=== PATIENT | female | born 1980 | race Caucasian/White ===

== ENCOUNTER 2016-09-28 22:56 | Emergency (ER) | payer MEDICAID ==
[~2016-09-28] VITALS: Ht 154.9 cm; Wt 121.5 kg
[~2016-09-28 22:56] MED LIST: ACET325T33 PO; BACTDS PO; BENZ100C70 PO; CEPH-443 PO; D-ME473S18 PO; GUAI120S26 PO; HYDR-3011 PO; HYDR-906 PO; IBUP-1542 PO; IBUP400T22 PO; IBUP800T25 PO; LORA-186 PO; NITR-58 PO
[2016-09-28 23:03] VITALS: Ht 154.9 cm; Wt 121.5 kg
[2016-09-29 02:26] LABS: URINE BLOOD (Dip) POC 2+ (NEGATIVE)
[2016-09-29] MEDS ORDERED: NITR-58 PO (02:46)
[2016-09-29] MEDS ORDERED: D-ME473S18 PO (02:46)
--- NOTE | 2016-09-29 02:51 | ERD ---
ER Documentation Chief Complaint Date/Time DATE: 09/29/16 TIME: 02:49 Chief Complaint sore throat and abdominal pain/nausea since yesterday. HPI This is a 35-year-old female presents to the ER with multiple complaints. Patient has a cough, runny nose, sore throat. Her daughter is sick with similar symptoms. Patient states that she also has urinary frequency and dysuria. She denies any vaginal discharge. Patient denies any chest pain shortness of breath. She denies any fevers or chills. ROS 12 point review of systems was done, all negative except per HPI. Medications Home Meds Active Scripts Dextromethorphan Hb-Promethazine Hcl (Promethazine DM Syrup) 473 Ml Syrup, 10 ML PO Q6H Y for COUGH, #4 OZ Prov:ALYSSA PARKS Nubia 09/29/16 Nitrofurantoin Monohyd Macrocr* (Macrobid*) 100 Mg Capsr, 100 MG PO BID for 7 Days, CAP Prov:ALYSSA PARKS Nubia 09/29/16 Nitrofurantoin Monohyd Macrocr* (Macrobid*) 100 Mg Capsr, 100 MG PO BID for 7 Days, CAP Prov:KASEYALYSSA Delacruz 09/13/16 Dextromethorphan Hb-Promethazine Hcl (Promethazine DM Syrup) 473 Ml Syrup, 10 ML PO Q6H Y for COUGH, #4 OZ Prov:KASEYALYSSA Delacruz 09/13/16 Hydrocodone/Acetaminophen ([place] 5-325 Tablet) 1 Each Tablet, 1 EACH PO Q6, #15 TAB Prov:ALYSSA PARKS 09/13/16 Ibuprofen* (Motrin*) 600 Mg Tab, 600 MG PO Q6, #14 TAB Prov:JOHN DONALDSON MD 06/01/16 Hydrocodone/Acetaminophen ([place] 5-325 Tablet) 1 Each Tablet, 1 TAB PO Q6H Y for PAIN, #10 TAB Prov:JOHN DONALDSON MD 06/01/16 Sulfamethoxazole-Trimethoprim* (Bactrim* DS) 800-160 Mg Tab, 1 TAB PO BID for 10 Days, TAB Prov:JOHN DONALDSON MD 06/01/16 Cephalexin* (Keflex*) 500 Mg Capsule, 500 MG PO QID for 7 Days, CAP Prov:ARNULFO RASHIDJamesC 01/16/16 Ibuprofen* (Motrin*) 800 Mg Tab, 800 MG PO Q6H Y for PAIN AND OR ELEVATED TEMP, #30 TAB Prov:DEYA LIZ MD 12/04/15 Sulfamethoxazole-Trimethoprim* (Bactrim* DS) 800-160 Mg Tab, 1 TAB PO BID for 7 Days, TAB Prov:DEYA LIZ MD 12/04/15 Benzonatate* (Tessalon Perle*) 100 Mg Capsule, 100 MG PO TID, #12 CAP Prov:MELISSA CHILDERSC 09/21/15 Acetaminophen* (Tylenol*) 325 Mg Tablet, 1 TAB PO Q4 Y for PAIN AND OR ELEVATED TEMP, #30 TAB Prov:MELISSA CHILDERSC 09/21/15 Ibuprofen* (Ibuprofen*) 400 Mg Tablet, 400 MG PO QID Y for pa, #30 TAB Prov:CUCA INTERIANO NP 08/13/15 Hydroxyzine Hcl* (Hydroxyzine Hcl*) 25 Mg Tablet, 25 MG PO Q8H Y for ITCHING, # 30 TAB Prov:CUCA INTERIANO NP 08/13/15 Surierspybq-O-Edxafupxrk Hb* (Guaifenesin* DM Syrup) 120 Ml Syrup, 10 ML PO Q4H Y for COUGH, #120 ML Prov:CUCA INTERIANO NP 08/13/15 Loratadine* (Claritin*) 10 Mg Tablet, 10 MG PO DAILY, #30 TAB Prov:CUCA INTERIANO NP 08/13/15 Reported Medications [none] Unknown Strength No Conflict Check 08/13/15 Allergies Allergies: Coded Allergies: No Known Drug Allergies (Unverified Allergy, Unknown, 01/16/16) PMhx/Soc Medical and Surgical Hx: pt denies Medical Hx, pt denies Surgical Hx History of Surgery: No Anesthesia Reaction: No Hx Neurological Disorder: No Hx Respiratory Disorders: No Hx Cardiac Disorders: No Hx Psychiatric Problems: No Hx Miscellaneous Medical Probl: No Hx Alcohol Use: No Hx Substance Use: No Hx Tobacco Use: No Smoking Status: Never smoker Physical Exam Vitals Vital Signs Date Time Temp Pulse Resp B/P Pulse Ox O2 Delivery O2 Flow Rate FiO2 09/28/16 23:03 96.0 94 20 137/63 97 Physical Exam GENERAL: The patient is well-developed, well-nourished, in no acute distress. NECK: Cervical spine is non tender with no step off. Supple, no nuchal rigidity HEENT: Atraumatic. Pupils equal, round and reactive to light. Extraocular muscles are grossly intact. Conjunctivae pink, no discharge. Bilateral tympanic membranes are clear with no evidence of erythema, effusion or dulling of the light reflex. Tonsilar erythema with no exudates or uvular deviation. Clear rhinorrhea. RESPIRATORY: Clear to auscultation bilaterally. There are no rales, wheezes or rhonchi. HEART: Regular rate and rhythm. No murmurs, clicks, rubs or gallops. EXTREMITIES: No clubbing or cyanosis. Full range of motion. Grossly neurovascularly intact. NEUROLOGIC: Alert and oriented. Cranial nerves II through XII are intact. SKIN: There is no rash. The skin is warm and dry. Results 24 hrs Laboratory Tests Test 09/29/16 02:26 Bedside Urine Blood 2+ Bedside Urine Glucose (UA) Negative Bedside Urine Ketones (LAB) Negative Bedside Urine Leukocyte Esterase (L 1+ Bedside Urine Nitrite (LAB) Negative Bedside Urine Protein (LAB) Negative Bedside Urine pH (LAB) 5.5 Procedures/MDM Differential diagnosis includes but is not limited to; Viral URI, allergic rhinitis, bronchitis, pertussis,pneumonia. Cough is likely viral in etiology. Clinical suspicion for pneumonia is low as patient appears well, is not hypoxic or in any respiratory distress. Additionally, patients physical examination is benign. Patient additionally has a UTI. She will be treated with Macrobid. Plan was discussed with patient they understand and agree. Patient needs to follow up with PCP in 1-2 days or return to ER sooner if symptoms worsen. Departure Diagnosis: Primary Impression: Multiple complaints Condition: Stable Patient Instructions: Understanding Urinary Tract Infections (UTIs) Additional Instructions: Llame al doctor MAANA y mikala carley RACH PARA DENTRO DE 1-2 EASTMAN.Dgale a la secretaria que nosotros le instruimos hacer esta rach.Avise o llame si barrera condicin se empeora antes de la rach. Regresa aqui si peor o no mejor. ALYSSA PARKS Sep 29, 2016 02:50
[2016-09-29 02:58] VITALS: BP 115/68; PULSE 94; RESP 22; TEMP 98.1
== END 2016-09-29 02:59 | disposition home or self-care (01) ==
LOC: FTE 22:56
DX: J02.9 Acute pharyngitis, unspecified (principal); R05 Cough; R30.0 Dysuria; R35.0 Frequency of micturition
CPT/HCPCS: 81003; Z7502; 99284

== ENCOUNTER 2016-10-15 04:58 | Emergency (ER) | payer MEDICAID ==
[~2016-10-15] VITALS: Ht 160 cm; Wt 121.0 kg
[2016-10-15 05:05] VITALS: Ht 160 cm; Wt 121.0 kg
[2016-10-15 05:27] VITALS: BP 110/57; RESP 20; TEMP 98.4
[2016-10-15] MEDS ORDERED: IBUP-1542 PO (05:33)
[2016-10-15] MEDS ORDERED: GUAI120S26 PO (05:33)
[2016-10-15] MEDS ORDERED: POLY10DR19 BOTH EYES (05:33)
[2016-10-15] MEDS ORDERED: CETI10CA PO (05:33)
--- NOTE | 2016-10-15 05:53 | ERD ---
ER Documentation Chief Complaint Date/Time DATE: 10/15/16 TIME: 05:51 Chief Complaint redness both eyes x 4 dAYS. also c/o cough, headache HPI 36-year-old female presents to emergency department for complaint of bilateral eye redness for 4 days. Patient has been been purulent discharge from both eyes. Patient also has been having dry cough, headache, does not cough up any phlegm or blood. Patient's complaining headache, throbbing, 4/10 scale. Patient is having runny nose nasal congestion clear nasal discharge. Patient's family members are sick with the same symptoms. Patient has not been taking any medications to help with symptoms. Patient does not have any fever or chills ROS All systems reviewed and are negative except as per history of present illness. Medications Home Meds Active Scripts Cetirizine Hcl* (Zyrtec*) 10 Mg Capsule, 10 MG PO DAILY, #30 TAB.CHEW Prov:CUCA INTERIANO DOPSTER 10/15/16 Polymyxin B Sulfate-TMP* (Polymyxin B-TMP Eye Drops*) 10 Ml Drops, 1 DROP BOTH EYES QID for 7 Days, EA Prov:CUCA INTERIANO DOPSTER 10/15/16 Ajielyqmvhr-S-Kvmwfsbmux Hb* (Guaifenesin* DM Syrup) 120 Ml Syrup, 10 ML PO Q4H Y for COUGH, #120 ML Prov:CUCA INTERIANO NP 10/15/16 Ibuprofen* (Motrin*) 600 Mg Tab, 600 MG PO Q6H Y for PAIN AND OR ELEVATED TEMP, #30 TAB Prov:CUCA INTERIANO DOPSTER 10/15/16 Dextromethorphan Hb-Promethazine Hcl (Promethazine DM Syrup) 473 Ml Syrup, 10 ML PO Q6H Y for COUGH, #4 OZ Prov:ALYSSA PARKS 09/29/16 Nitrofurantoin Monohyd Macrocr* (Macrobid*) 100 Mg Capsr, 100 MG PO BID for 7 Days, CAP Prov:ALYSSA PARKS 09/29/16 Nitrofurantoin Monohyd Macrocr* (Macrobid*) 100 Mg Capsr, 100 MG PO BID for 7 Days, CAP Prov:ALYSSA PARKS 09/13/16 Dextromethorphan Hb-Promethazine Hcl (Promethazine DM Syrup) 473 Ml Syrup, 10 ML PO Q6H Y for COUGH, #4 OZ Prov:ALYSSA PARKS 09/13/16 Hydrocodone/Acetaminophen ([place] 5-325 Tablet) 1 Each Tablet, 1 EACH PO Q6, #15 TAB Prov:ALYSSA PARKS 09/13/16 Ibuprofen* (Motrin*) 600 Mg Tab, 600 MG PO Q6, #14 TAB Prov:JOHN DONALDSON MD 06/01/16 Hydrocodone/Acetaminophen ([place] 5-325 Tablet) 1 Each Tablet, 1 TAB PO Q6H Y for PAIN, #10 TAB Prov:JOHN DONALDSON MD 06/01/16 Sulfamethoxazole-Trimethoprim* (Bactrim* DS) 800-160 Mg Tab, 1 TAB PO BID for 10 Days, TAB Prov:JOHN DONALDSON MD 06/01/16 Cephalexin* (Keflex*) 500 Mg Capsule, 500 MG PO QID for 7 Days, CAP Prov:ARNULFO RASHIDC 01/16/16 Ibuprofen* (Motrin*) 800 Mg Tab, 800 MG PO Q6H Y for PAIN AND OR ELEVATED TEMP, #30 TAB Prov:DEYA LIZ MD 12/04/15 Sulfamethoxazole-Trimethoprim* (Bactrim* DS) 800-160 Mg Tab, 1 TAB PO BID for 7 Days, TAB Prov:DEYA LIZ MD 12/04/15 Benzonatate* (Tessalon Perle*) 100 Mg Capsule, 100 MG PO TID, #12 CAP Prov:MELISSA CHILDERSC 09/21/15 Acetaminophen* (Tylenol*) 325 Mg Tablet, 1 TAB PO Q4 Y for PAIN AND OR ELEVATED TEMP, #30 TAB Prov:MELISSA CHILDERSC 09/21/15 Ibuprofen* (Ibuprofen*) 400 Mg Tablet, 400 MG PO QID Y for pa, #30 TAB Prov:CUCA INTERIANO NP 08/13/15 Hydroxyzine Hcl* (Hydroxyzine Hcl*) 25 Mg Tablet, 25 MG PO Q8H Y for ITCHING, # 30 TAB Prov:LAISHACUCA GREENE VivianBecky DOPSTER 08/13/15 Scencurrldj-N-Yirxrfaaei Hb* (Guaifenesin* DM Syrup) 120 Ml Syrup, 10 ML PO Q4H Y for COUGH, #120 ML Prov:LAISHACUCA GREENE TBecky BABIN 08/13/15 Loratadine* (Claritin*) 10 Mg Tablet, 10 MG PO DAILY, #30 TAB Prov:LAISHACUCA GREENE Nahum DOPSTER 08/13/15 Reported Medications [none] Unknown Strength No Conflict Check 08/13/15 Allergies Allergies: Coded Allergies: No Known Drug Allergies (Unverified Allergy, Unknown, 10/15/16) PMhx/Soc Medical and Surgical Hx: pt denies Medical Hx, pt denies Surgical Hx History of Surgery: No Anesthesia Reaction: No Hx Neurological Disorder: No Hx Respiratory Disorders: No Hx Cardiac Disorders: No Hx Psychiatric Problems: No Hx Miscellaneous Medical Probl: No (DENIES MEDICAL AND SURGICAL HISTORY.) Hx Alcohol Use: No Hx Substance Use: No Hx Tobacco Use: No Smoking Status: Never smoker FmHx Family History: No coronary disease, No diabetes, No other Physical Exam Vitals Vital Signs Date Time Temp Pulse Resp B/P Pulse Ox O2 Delivery O2 Flow Rate FiO2 10/15/16 05:27 98.4 20 110/57 98 10/15/16 05:05 98.4 90 20 110/57 98 Physical Exam GENERAL: The patient is well developed and appropriate for usual state of health, in no apparent distress. HEENT: Atraumatic. Bilateral eye noted to be erythematous with clear discharge. Bilateral eyes are PERRL EOMI intact. Ears: Normal tympanic membrane, no erythema or bulging. No ear canal swelling. No ear discharge. Nose: Erythematous nasal turbinates with clear nasal discharge. Throat: oropharynx erythematous with postnasal drip. No tonsillar swelling or tonsillar exudates. No lymphadenopathy. CHEST: Clear to auscultation bilaterally. There are no rales, wheezes or rhonchi. HEART: Regular rate and rhythm. No murmurs, clicks, rubs or gallops. No S3 or S4. ABDOMEN: Soft, nontender and nondistended. Good bowel sounds. No rebound or guarding. No gross peritonitis. No gross organomegaly or masses. No Yadav sign or McBurney point tenderness. BACK: No midline or flank tenderness. EXTREMITIES: Equal pulses bilaterally. There is no peripheral clubbing, cyanosis or edema. No focal swelling or erythema. Full range of motion. Grossly neurovascularly intact. NEURO: Alert and oriented. Cranial nerves 2-12 intact. Motor strength in all 4 extremities with 5/5 strength. Sensation grossly intact. Normal speech and gait. SKIN: There is no apparent rash or petechia. The skin is warm and dry. HEMATOLOGIC AND LYMPHATIC: There is no evidence of excessive bruising or lymphedema. No gross cervical, axillary, or inguinal lymphadenopathy. Procedures/MDM Medical Decision Making: Patient symptoms are most likely consistent with upper respiratory tract infection/ bronchitis, which viral in origin. There is low suspicion for Pneumonia at this time since patients lungs sounds are clear, patient O2 saturation is normal and patient doesnt show any respiratory distress. Radiology exam is not indicated at this time. There is low suspicion for other cardiopulmonary emergencies at this time such as CHF, Pulmonary Embolism, Pneumothorax, or any other cardiopulmonary emergencies at this time. There is low suspicion for sepsis. Patient appears well and is hemodynamically stable. Fever is controlled with medicines. Bilateral eye redness noted most likely consistent with acute bacterial conjunctivitis, no symptoms of other eye emergencies at this time. Disposition: Home. Condition: Stable Prescriptions: Polytrim eyedrops, guaifenesin DM, Zyrtec, ibuprofen Instructions: Patient is advised to take medications as prescribed. Patient is advised to rest. Patient advised to increase fluid intake, do humidifier at home and if possible, do salt water gargles. Patient is advised that if symptoms are worse, shortness of breath, uncontrolled fever, stridor, vomiting, worst signs and symptoms to return to emergency department immediately. Otherwise, patient is advised to follow up with primary doctor in 5-7 days. Departure Diagnosis: Primary Impression: Acute bacterial conjunctivitis of both eyes Additional Impression: URI (upper respiratory infection) URI type: unspecified viral URI Qualified Code: J06.9 - Viral upper respiratory tract infection Condition: Stable Patient Instructions: Conjunctivitis Caused by Infection, Uri, Viral, No Abx ( Adult) CUCA INTERIANO NP Oct 15, 2016 05:53
== END 2016-10-15 05:49 | disposition home or self-care (01) ==
LOC: FTE 04:58
DX: H10.023 Other mucopurulent conjunctivitis, bilateral (principal); J06.9 Acute upper respiratory infection, unspecified
CPT/HCPCS: 99283

== ENCOUNTER 2016-11-22 17:52 | Emergency (ER) | payer MEDICAID ==
[~2016-11-22] VITALS: Wt 95.0 kg
[~2016-11-22 17:52] MED LIST changes: +CETI10CA PO; +POLY10DR19 BOTH EYES
[2016-11-22] MEDS ORDERED: BACTDS PO (18:33)
[2016-11-22] MEDS ORDERED: IBUP-1542 PO (18:33)
[2016-11-22] MEDS ORDERED: CEPH-443 PO (18:33)
[2016-11-22] MEDS ORDERED: CLOT30CR24 TOP (18:33)
--- NOTE | 2016-11-22 18:50 | ERD ---
ER Documentation Chief Complaint Date/Time DATE: 11/22/16 TIME: 18:47 Chief Complaint LEFT AXILLA RASH FOR THE PAST FEW MONTHS. NO DRAIN HPI 36-year-old female presents here in emergency department for complaints of rash and itching in the left axillary area for the last 6 months, worsened last 2 days. Patient was seen with primary care doctor, is being referred to front desk specialist for this. Patient continues to have pain, burning pain, 4 /10 scale, is worse upon touching the area. Patient denies any swelling. Patient denies any fever or chills. Patient did not take any medications to help with symptoms. ROS All systems reviewed and are negative except as per history of present illness. Medications Home Meds Active Scripts Ibuprofen* (Motrin*) 600 Mg Tab, 600 MG PO Q6H Y for PAIN AND OR ELEVATED TEMP, #30 TAB Prov:CUCA INTERIANO NP 11/22/16 Cephalexin* (Keflex*) 500 Mg Capsule, 500 MG PO QID for 10 Days, CAP Prov:CUCA INTERIANO NP 11/22/16 Sulfamethoxazole-Trimethoprim* (Bactrim* DS) 800-160 Mg Tab, 1 TAB PO BID for 10 Days, TAB Prov:CUCA INTERIANO NP 11/22/16 Clotrimazole* (Clotrimazole* AF) 1% - 30 Gm Cream.gm., 1 APPLIC TOP BID for 7 Days, TUB Prov:CUAC INTERIANO NP 11/22/16 Cetirizine Hcl* (Zyrtec*) 10 Mg Capsule, 10 MG PO DAILY, #30 TAB.CHEW Prov:CUCA INTERIANO NP 10/15/16 Polymyxin B Sulfate-TMP* (Polymyxin B-TMP Eye Drops*) 10 Ml Drops, 1 DROP BOTH EYES QID for 7 Days, EA Prov:CUCA INTERIANO NP 10/15/16 Aheqirsxktr-Y-Kfmwuogyft Hb* (Guaifenesin* DM Syrup) 120 Ml Syrup, 10 ML PO Q4H Y for COUGH, #120 ML Prov:CUCA INTERIANO NP 10/15/16 Ibuprofen* (Motrin*) 600 Mg Tab, 600 MG PO Q6H Y for PAIN AND OR ELEVATED TEMP, #30 TAB Prov:CUCA INTERIANO NP 10/15/16 Dextromethorphan Hb-Promethazine Hcl (Promethazine DM Syrup) 473 Ml Syrup, 10 ML PO Q6H Y for COUGH, #4 OZ Prov:ALYSSA PARKS C 09/29/16 Nitrofurantoin Monohyd Macrocr* (Macrobid*) 100 Mg Capsr, 100 MG PO BID for 7 Days, CAP Prov:ALYSSA PARKS C 09/29/16 Nitrofurantoin Monohyd Macrocr* (Macrobid*) 100 Mg Capsr, 100 MG PO BID for 7 Days, CAP Prov:ALYSSA PARKS C 09/13/16 Dextromethorphan Hb-Promethazine Hcl (Promethazine DM Syrup) 473 Ml Syrup, 10 ML PO Q6H Y for COUGH, #4 OZ Prov:KASEYALYSSA GARNETT C 09/13/16 Hydrocodone/Acetaminophen ([place] 5-325 Tablet) 1 Each Tablet, 1 EACH PO Q6, #15 TAB Prov:KASEYALYSSA C 09/13/16 Ibuprofen* (Motrin*) 600 Mg Tab, 600 MG PO Q6, #14 TAB Prov:JOHN DONALDSON MD 06/01/16 Hydrocodone/Acetaminophen ([place] 5-325 Tablet) 1 Each Tablet, 1 TAB PO Q6H Y for PAIN, #10 TAB Prov:JOHN DONALDSON MD 06/01/16 Sulfamethoxazole-Trimethoprim* (Bactrim* DS) 800-160 Mg Tab, 1 TAB PO BID for 10 Days, TAB Prov:JOHN DONALDSON MD 06/01/16 Cephalexin* (Keflex*) 500 Mg Capsule, 500 MG PO QID for 7 Days, CAP Prov:ARNULFO RASHID PA-C 01/16/16 Ibuprofen* (Motrin*) 800 Mg Tab, 800 MG PO Q6H Y for PAIN AND OR ELEVATED TEMP, #30 TAB Prov:DEYA LIZ MD 12/04/15 Sulfamethoxazole-Trimethoprim* (Bactrim* DS) 800-160 Mg Tab, 1 TAB PO BID for 7 Days, TAB Prov:DEYA LIZ MD 12/04/15 Benzonatate* (Tessalon Perle*) 100 Mg Capsule, 100 MG PO TID, #12 CAP Prov:MELISSA CHILDERS PA-C 09/21/15 Acetaminophen* (Tylenol*) 325 Mg Tablet, 1 TAB PO Q4 Y for PAIN AND OR ELEVATED TEMP, #30 TAB Prov:MELISSA CHILDERS PA-C 09/21/15 Ibuprofen* (Ibuprofen*) 400 Mg Tablet, 400 MG PO QID Y for pa, #30 TAB Prov:CUCA INTERIANO NP 08/13/15 Hydroxyzine Hcl* (Hydroxyzine Hcl*) 25 Mg Tablet, 25 MG PO Q8H Y for ITCHING, # 30 TAB Prov:CUCA INTERIANO NP 08/13/15 Gmedzjoytmg-Y-Cankfhuigx Hb* (Guaifenesin* DM Syrup) 120 Ml Syrup, 10 ML PO Q4H Y for COUGH, #120 ML Prov:CUCA INTERIANO NP 08/13/15 Loratadine* (Claritin*) 10 Mg Tablet, 10 MG PO DAILY, #30 TAB Prov:CUCA INTERIANO NP 08/13/15 Reported Medications [none] Unknown Strength No Conflict Check 08/13/15 Allergies Allergies: Coded Allergies: No Known Drug Allergies (Unverified Allergy, Unknown, 10/15/16) PMhx/Soc Medical and Surgical Hx: pt denies Medical Hx, pt denies Surgical Hx History of Surgery: No Anesthesia Reaction: No Hx Neurological Disorder: No Hx Respiratory Disorders: No Hx Cardiac Disorders: No Hx Psychiatric Problems: No Hx Miscellaneous Medical Probl: No (DENIES MEDICAL AND SURGICAL HISTORY.) Hx Alcohol Use: No Hx Substance Use: No Hx Tobacco Use: No FmHx Family History: diabetes Physical Exam Vitals Vital Signs Date Time Temp Pulse Resp B/P Pulse Ox O2 Delivery O2 Flow Rate FiO2 11/22/16 17:57 98.6 100 21 134/71 99 Physical Exam GENERAL: The patient is well developed and appropriate for usual state of health, in no apparent distress. CHEST: Clear to auscultation bilaterally. There are no rales, wheezes or rhonchi. HEART: Regular rate and rhythm. No murmurs, clicks, rubs or gallops. No S3 or S4. ABDOMEN: Soft, nontender and nondistended. Good bowel sounds. No rebound or guarding. No gross peritonitis. No gross organomegaly or masses. No Yadav sign or McBurney point tenderness. BACK: No midline or flank tenderness. EXTREMITIES: Equal pulses bilaterally. There is no peripheral clubbing, cyanosis or edema. No focal swelling or erythema. Full range of motion. Grossly neurovascularly intact. NEURO: Alert and oriented. Cranial nerves 2-12 intact. Motor strength in all 4 extremities with 5/5 strength. Sensation grossly intact. Normal speech and gait. SKIN: Left axillary area noted macerated skin with mild erythema, no fluctuance noted, mild induration noted. There is no apparent ecchymosis or petechia. The skin is warm and dry. HEMATOLOGIC AND LYMPHATIC: There is no evidence of excessive bruising or lymphedema. No gross cervical, axillary, or inguinal lymphadenopathy. Procedures/MDM Medical decision making: Patient symptoms is that is consistent with candidal skin infection on the left axillary, intertrigo, but secondary infection or cellulitis. No symptoms of any abscess at this time. Incision and drainage not indicated at this time. No fluctuance noted. No symptoms of sepsis at this time. No symptoms of any necrosis. Prescription was given for Bactrim, Keflex, Clotrimazole 1% cream, ibuprofen, is advised to follow-up with primary care doctor in 2-3 days, follow through with front desk specialist referral, patient is advised to return to emergency department for any worsening symptoms. Departure Diagnosis: Primary Impression: Cellulitis Site of cellulitis: extremity Site of cellulitis of extremity: axilla Laterality: left Qualified Code: L03.112 - Cellulitis of left axilla Additional Impression: Intertriginous candidiasis Condition: Stable Patient Instructions: Cellulitis, Sara Skin Infection (Adult) CUCA INTERIANO NP Nov 22, 2016 18:50
== END 2016-11-22 18:36 | disposition home or self-care (01) ==
LOC: E/R 17:52
DX: L03.112 Cellulitis of left axilla (principal); B37.2 Candidiasis of skin and nail
CPT/HCPCS: 99284

== ENCOUNTER 2017-03-08 16:55 | Emergency (ER) | payer MEDICAID ==
[~2017-03-08] VITALS: Ht 152.4 cm; Wt 100.0 kg
[~2017-03-08 16:55] MED LIST changes: +CLOT30CR24 TOP
[2017-03-08 17:03] VITALS: Ht 152.4 cm; Wt 100.0 kg
[2017-03-08] MEDS ORDERED: ONDANSETRON 4 MG INJ IV STA (17:23)
[2017-03-08] MEDS ORDERED: morphine 4 MG/ML VIAL IV STA ×2 (17:23→18:45)
[2017-03-08 17:48] LABS: ADD SCAN DIFF NO
[2017-03-08 17:50] LABS: BASOPHILS % 0.2 % (0.0-2.0); EOSINOPHILS # 0.2 10^3/ul (0.0-0.5); EOSINOPHILS % 0.9 % (0.0-7.0); HEMOGLOBIN 14.1 g/dl (12.0-16.0); LYMPHOCYTES # 1.4 10^3/ul (0.8-2.9); LYMPHOCYTES % 8.1 % (15.0-51.0); MEAN CORPUSCULAR HEMOGLOBIN 28.3 pg (29.0-33.0); MEAN CORPUSCULAR HGB CONC 32.8 g/dl (32.0-37.0); MEAN CORPUSCULAR VOLUME 86.3 fl (82.0-101.0); MEAN PLATELET VOLUME 10.6 fl (7.4-10.4); MONOCYTE # 1.1 10^3/ul (0.3-0.9); MONOCYTES % 6.8 % (0.0-11.0); NEUTROPHIL # 13.8 10^3/ul (1.6-7.5); NEUTROPHILS % 83.3 % (39.0-77.0); PLATELET COUNT 221 10^3/UL (140-415); RED BLOOD COUNT 4.98 10^6/ul (4.20-5.40); RED CELL DISTRIBUTION WIDTH 13.3 % (11.5-14.5); WHITE BLOOD COUNT 16.6 10^3/ul (4.8-10.8)
[2017-03-08 17:51] LABS: ADD UMIC YES; URINE BILIRUBIN (Dip) NEGATIVE (NEGATIVE); URINE BLOOD (Dip) 3+ (NEGATIVE); URINE COLOR LT. YELLOW (YELLOW); URINE GLUCOSE (Dip) NEGATIVE (NEGATIVE); URINE KETONES (Dip) NEGATIVE (NEGATIVE); URINE LEUKOCYTE ESTERASE (Dip) TRACE (NEGATIVE); URINE NITRITE (Dip) NEGATIVE (NEGATIVE); URINE TOTAL PROTEIN (Dip) NEGATIVE (NEGATIVE); URINE UROBILINOGEN (Dip) 0.2 E.U./dL (0.1-1.0)
--- NOTE | 2017-03-08 17:57 | RADRPT ---
PROCEDURE: US Abdomen (right upper quadrant). CLINICAL INDICATION: Right upper quadrant abdomen pain. TECHNIQUE: Multiple real-time longitudinal and transverse images of the right upper quadrant of th e abdomen were acquired utilizing a curved array transducer. Images were reviewed on a high-resoluti on PACS workstation. COMPARISON: None FINDINGS: This is a limited study due to overlying bowel gas and patient body habitus. The liver is normal in size and normal in echogenicity. There is no focal hepatic lesion. The gallbladder is normal with no stones or wall thickening. There is no pericholecystic fluid anastacia ection. The intrahepatic bile ducts are grossly normal. The common bile duct is not visualized due to patie nt body habitus and overlying bowel gas. The visualized portions of the pancreas are unremarkable with obscuration of the tail of the pancrea s. No free fluid is present. The right kidney measures 12.1 x 4.6 x 5.7 cm. There is normal echogenicity of the right kidney. There is no perinephric fluid collection. No hydronephrosis, mass, or calculus is seen. IMPRESSION: 1. Limited study. 2. Common bile duct not visualized. 3. Otherwise grossly normal study. RPTAT: QQ .Kennedy Anand MD, MD Date Time Electronically viewed and signed by .Kennedy Anand MD, on 03/08/2017 17:57 .R/
[2017-03-08 18:06] LABS: BACTERIA,URINE FEW; SQUAMOUS EPITHELIAL CELL,UR MANY
[2017-03-08 18:29] LABS: ALBUMIN 4.6 g/dl (3.3-4.9); ALBUMIN/GLOBULIN RATIO 1.31; BILIRUBIN,INDIRECT 0.2 mg/dl (0-1.1); BILIRUBIN,TOTAL 0.2 mg/dl (0.2-1.3); CALCIUM 8.8 mg/dl (8.4-10.2); CREATININE 0.46 mg/dl (0.44-1.00); POTASSIUM 4.3 mmol/L (3.5-5.1); TOTAL PROTEIN 8.1 g/dl (6.1-8.1)
--- NOTE | 2017-03-08 18:55 | RADRPT ---
PROCEDURE: CT Abdomen and Pelvis without contrast. CLINICAL INDICATION: Abdominal pain TECHNIQUE: CT scan of the abdomen and pelvis without contrast was performed. The patient was scann ed without intravenous contrast. Coronal and sagittal reformatted images were obtained from the axi al source images. Use of iterative reconstruction technique was employed. Images were reviewed on a high-resolution PACS workstation. images. The calculated radiation dose measures 1480.88 mGy centime ters. The CTDI measures 23.70 mGy. One or more of the following dose reduction techniques were used: - Automated exposure control. - Adjustment of the mA and/or kV according to patient size . - Use of iterative reconstruction technique. Images were reviewed on a high-resolution PACS workstation COMPARISON: 09/13/2016 FINDINGS: CT abdomen: The lung bases are clear. There is a bleb noted at the right lower lobe. The heart size is normal, without pericardial thickening or effusion. The liver is mildly increased size and decreased densi ty without focal mass or intrahepatic biliary dilatation. There are areas of increased attenuation w ithin the liver parenchyma. The spleen is normal in size and homogeneous in density. The stomach i s partially collapsed, but is grossly unremarkable. The pancreas as visualized is normal. The gall bladder and biliary tree are unremarkable and there is no evidence for biliary dilatation. The adr enal glands are symmetric and normal. The kidneys are symmetrically unremarkable as well. No renal calculus or obstructive uropathy or mass lesion is seen. The aorta is of normal caliber. There is no retroperitoneal lymphadenopathy. The zeeshan hepatis re gion is clear. The bowel and mesentery, as visualized, are equally unremarkable. There is a mesente chasidy fat containing periumbilical hernia with the hernia neck measuring approximately 2.[address] pelvis: The small bowel loops situated within the pelvis are unremarkable. The pelvic organs are normal. T he pelvic sidewalls and inguinal regions are clear. The sigmoid colon and rectum are remarkable for sigmoid diverticulosis. Normal unenhanced appearance of the appendix. No mass, lymphadenopathy, or free fluid is seen. No acute inflammation is seen. The surrounding osseous structures are intact. No osteolytic or osteoblastic lesion is detected. IMPRESSION: 1. No acute inflammatory process identified in the abdomen or pelvis on this noncontrast examination . 2. Enlarged fatty liver, with areas of fatty sparing. A non emergent contrast-enhanced study or ul trasound may be obtained for confirmation if there are abnormal liver function values. 3. Normal unenhanced appearance of the appendix. 4. Similar appearing freeman umbilical hernia containing mesenteric fat. RPTAT: VV .Tiburcio Vizcarra MD, Date Time Electronically viewed and signed by .Tiburcio Vizcarra MD, on 03/08/2017 18:55 .d/
[2017-03-08] MEDS ORDERED: DICLOFENAC SODIUM 37.5 MG/ML VIAL IV STA (18:58)
[2017-03-08] MEDS ORDERED: HYDR-906 PO (19:12)
[2017-03-08] MEDS ORDERED: PANT40TA3 PO (19:12)
[2017-03-08] MEDS ORDERED: DOCU-144 PO (19:13)
--- NOTE | 2017-03-08 19:19 | ERD ---
ER Documentation Chief Complaint Date/Time DATE: 03/08/17 TIME: 19:16 Chief Complaint AP X 3 DAYS HPI 36-year-old female complains of central or epigastric abdominal pain for last 2- 3 days. She describes as burning. She denies fevers, vomiting although she does have nausea. She denies lower abdominal pain. She denies urinary complaints ROS All systems reviewed and are negative except as per history of present illness. Medications Home Meds Active Scripts Docusate Sodium* (Colace*) 100 Mg Capsule, 100 MG PO BID, #30 CAP Prov:JOHN DONALDSON MD 03/08/17 Hydrocodone/Acetaminophen ([place] 5-325 Tablet) 1 Each Tablet, 1 EACH PO QID, # 12 TAB Prov:JOHN DONALDSON MD 03/08/17 Pantoprazole* (Protonix*) 40 Mg Tablet.dr, 40 MG PO DAILY, #20 TAB Prov:JOHN DONALDSON MD 03/08/17 Ibuprofen* (Motrin*) 600 Mg Tab, 600 MG PO Q6H Y for PAIN AND OR ELEVATED TEMP, #30 TAB Prov:CUCA INTERIANO NP 11/22/16 Cephalexin* (Keflex*) 500 Mg Capsule, 500 MG PO QID for 10 Days, CAP Prov:CUCA INTERIANO NP 11/22/16 Sulfamethoxazole-Trimethoprim* (Bactrim* DS) 800-160 Mg Tab, 1 TAB PO BID for 10 Days, TAB Prov:CUCA INTERIANO NP 11/22/16 Clotrimazole* (Clotrimazole* AF) 1% - 30 Gm Cream.gm., 1 APPLIC TOP BID for 7 Days, TUB Prov:CUCA INTERIANO NP 11/22/16 Cetirizine Hcl* (Zyrtec*) 10 Mg Capsule, 10 MG PO DAILY, #30 TAB.CHEW Prov:CUCA INTERIANO NP 10/15/16 Polymyxin B Sulfate-TMP* (Polymyxin B-TMP Eye Drops*) 10 Ml Drops, 1 DROP BOTH EYES QID for 7 Days, EA Prov:CUCA INTERIANO NP 10/15/16 Upjktqqxofs-T-Vezsqojuto Hb* (Guaifenesin* DM Syrup) 120 Ml Syrup, 10 ML PO Q4H Y for COUGH, #120 ML Prov:CUCA INTERIANO PREVENTIVE MEDICINE SPECIALIST 10/15/16 Ibuprofen* (Motrin*) 600 Mg Tab, 600 MG PO Q6H Y for PAIN AND OR ELEVATED TEMP, #30 TAB Prov:CUCA INTERIANO PREVENTIVE MEDICINE SPECIALIST 10/15/16 Dextromethorphan Hb-Promethazine Hcl (Promethazine DM Syrup) 473 Ml Syrup, 10 ML PO Q6H Y for COUGH, #4 OZ Prov:ALYSSA PARKS 09/29/16 Nitrofurantoin Monohyd Macrocr* (Macrobid*) 100 Mg Capsr, 100 MG PO BID for 7 Days, CAP Prov:ALYSSA PARKS 09/29/16 Nitrofurantoin Monohyd Macrocr* (Macrobid*) 100 Mg Capsr, 100 MG PO BID for 7 Days, CAP Prov:ALYSSA PARKS 09/13/16 Dextromethorphan Hb-Promethazine Hcl (Promethazine DM Syrup) 473 Ml Syrup, 10 ML PO Q6H Y for COUGH, #4 OZ Prov:ALYSSA PARKS 09/13/16 Hydrocodone/Acetaminophen ([place] 5-325 Tablet) 1 Each Tablet, 1 EACH PO Q6, #15 TAB Prov:ALYSSA PARKS 09/13/16 Ibuprofen* (Motrin*) 600 Mg Tab, 600 MG PO Q6, #14 TAB Prov:JOHN DONALDSON MD 06/01/16 Hydrocodone/Acetaminophen ([place] 5-325 Tablet) 1 Each Tablet, 1 TAB PO Q6H Y for PAIN, #10 TAB Prov:JOHN DONALDSON MD 06/01/16 Sulfamethoxazole-Trimethoprim* (Bactrim* DS) 800-160 Mg Tab, 1 TAB PO BID for 10 Days, TAB Prov:JOHN DONALDSON MD 06/01/16 Cephalexin* (Keflex*) 500 Mg Capsule, 500 MG PO QID for 7 Days, CAP Prov:ARNULFO RASHID PA-C 01/16/16 Ibuprofen* (Motrin*) 800 Mg Tab, 800 MG PO Q6H Y for PAIN AND OR ELEVATED TEMP, #30 TAB Prov:DEYA LIZ MD 12/04/15 Sulfamethoxazole-Trimethoprim* (Bactrim* DS) 800-160 Mg Tab, 1 TAB PO BID for 7 Days, TAB Prov:DEYA LIZ MD 12/04/15 Benzonatate* (Tessalon Perle*) 100 Mg Capsule, 100 MG PO TID, #12 CAP Prov:MELISSA CHILDERS PA-C 09/21/15 Acetaminophen* (Tylenol*) 325 Mg Tablet, 1 TAB PO Q4 Y for PAIN AND OR ELEVATED TEMP, #30 TAB Prov:MELISSA CHILDERS PA-C 09/21/15 Ibuprofen* (Ibuprofen*) 400 Mg Tablet, 400 MG PO QID Y for pa, #30 TAB Prov:CUCA INTERIANO NP 08/13/15 Hydroxyzine Hcl* (Hydroxyzine Hcl*) 25 Mg Tablet, 25 MG PO Q8H Y for ITCHING, # 30 TAB Prov:CUCA INTERIANO NP 08/13/15 Epmruhoevtj-S-Otvvnoagyj Hb* (Guaifenesin* DM Syrup) 120 Ml Syrup, 10 ML PO Q4H Y for COUGH, #120 ML Prov:CUCA INTERIANO NP 08/13/15 Loratadine* (Claritin*) 10 Mg Tablet, 10 MG PO DAILY, #30 TAB Prov:CUCA INTERIANO NP 08/13/15 Reported Medications [none] Unknown Strength No Conflict Check 08/13/15 Allergies Allergies: Coded Allergies: No Known Drug Allergies (Unverified Allergy, Unknown, 10/15/16) PMhx/Soc History of Surgery: No Anesthesia Reaction: No Hx Neurological Disorder: No Hx Respiratory Disorders: No Hx Cardiac Disorders: No Hx Psychiatric Problems: No Hx Miscellaneous Medical Probl: No (DENIES MEDICAL AND SURGICAL HISTORY.) Hx Alcohol Use: No Hx Substance Use: No Hx Tobacco Use: No Smoking Status: Never smoker Physical Exam Vitals Vital Signs Date Time Temp Pulse Resp B/P Pulse Ox O2 Delivery O2 Flow Rate FiO2 03/08/17 17:03 98.1 95 20 130/87 99 Physical Exam Const: [] Alert, morbidly obese, no apparent distress. Head: Atraumatic Eyes: Normal Conjunctiva ENT: Normal External Ears, Nose and Mouth. Neck: Full range of motion..~ No meningismus. Resp: Clear to auscultation bilaterally Cardio: Regular rate and rhythm, no murmurs Abd: Soft, tender in the superior abdomen mostly in the epigastric area., non distended. Normal bowel sounds Skin: No petechiae or rashes Back: No midline or flank tenderness Ext: No cyanosis, or edema Neur: Awake and alert Psych: Normal Mood and Affect Result Diagram: 03/08/17 [id number] Results 24 hrs Laboratory Tests Test 03/08/17 17:34 03/08/17 17:39 Urine Color LT. YELLOW Urine Clarity SLIGHTLY CLOUDY Urine pH 5.5 Urine Specific [place] 1.015 Urine Ketones NEGATIVE Urine Nitrite NEGATIVE Urine Bilirubin NEGATIVE Urine Urobilinogen 0.2 E.U./dL Urine Leukocyte Esterase TRACE Urine Microscopic RBC 5-10/HPF Urine Microscopic WBC 5-10/HPF Urine Squamous Epithelial Cells MANY Urine Bacteria FEW Urine Hemoglobin 3+ Urine Glucose NEGATIVE% Urine Total Protein NEGATIVE White Blood Count 16.610^3/ul Red Blood Count 4.9810^6/ul Hemoglobin 14.1g/dl Hematocrit 43.0% Mean Corpuscular Volume 86.3fl Mean Corpuscular Hemoglobin 28.3pg Mean Corpuscular Hemoglobin Concent 32.8g/dl Red Cell Distribution Width 13.3% Platelet Count 61544^3/UL Mean Platelet Volume 10.6fl Neutrophils % 83.3% Lymphocytes % 8.1% Monocytes % 6.8% Eosinophils % 0.9% Basophils % 0.2% Nucleated Red Blood Cells % 0.0/100WBC Neutrophils # 13.810^3/ul Lymphocytes # 1.410^3/ul Monocytes # 1.110^3/ul Eosinophils # 0.210^3/ul Basophils # 0.010^3/ul Nucleated Red Blood Cells # 0.010^3/ul Sodium Level 142mmol/L Potassium Level 4.3mmol/L Chloride Level 108mmol/L Carbon Dioxide Level 25mmol/L Anion Gap 13 Blood Urea Nitrogen 16mg/dl Creatinine 0.46mg/dl Glucose Level 215mg/dl Calcium Level 8.8mg/dl Total Bilirubin 0.2mg/dl Direct Bilirubin 0.00mg/dl Indirect Bilirubin 0.2mg/dl Aspartate Amino Transf (AST/SGOT) 37IU/L Alanine Aminotransferase (ALT/SGPT) 40IU/L Alkaline Phosphatase 100IU/L Total Protein 8.1g/dl Albumin 4.6g/dl Globulin 3.50g/dl Albumin/Globulin Ratio 1.31 Lipase 74U/L Current Medications Medications (Trade) Dose Ordered Sig/Reinier Route PRN Reason Start Time Stop Time Status Last Admin Dose Admin Morphine Sulfate (morphine) 4 mg ONCE STAT IV 03/08/17 17:23 03/08/17 17:25 DC 03/08/17 17:43 Ondansetron HCl (Zofran Inj) 4 mg ONCE STAT IV 03/08/17 17:23 03/08/17 17:25 DC 03/08/17 17:43 Morphine Sulfate (morphine) 4 mg ONCE STAT IV 03/08/17 18:45 03/08/17 18:46 DC 03/08/17 18:51 Diclofenac Sodium (Dyloject) 37.5 mg ONCE STAT IV 03/08/17 18:58 03/08/17 18:59 DC 03/08/17 19:12 Pantoprazole (Protonix Iv) 40 mg ONCE ONCE IV 03/08/17 19:30 03/08/17 19:31 03/08/17 19:12 Procedures/MDM Given the uncertain cause of pain and IV was obtained. White blood cell count of 16. CMP and lipase show no acute abnormalities. Urine shows no signs of infection, glucose and hemoglobin. Right upper quadrant ultrasound is limited study but shows no acute abnormalities grossly. Patient was given morphine 4 mg IV 2 during the ED course as well as DYLOJECT 37.5 and Protonix [address] abdomen pelvis noncontrast shows non-strangulated ventral hernia seen on previous studies. There is fatty liver without acute findings. Patient had a benign abdomen on serial exam. Patient presents with burning central or upper abdominal pain of uncertain etiology, possibly gastritis. There is no current signs or symptoms of acute abdomen, obstruction, sepsis, appendicitis, aortic disease, cholecystitis, UTI or pyelonephritis. She will discharged home with Protonix [place] and observation at home. The patient was stable with no new complaints during the ER course. Clinically, there is no current evidence to suggest meningitis, sepsis, acute abdomen, pneumonia, acute coronary syndrome, pulmonary embolism, or any other emergent condition appearing to require further evaluation or hospitalization. The patient should certainly return for any new or worsening symptoms per the aftercare instructions. They should otherwise follow-up with her primary care doctor for reevaluation this week. Departure Diagnosis: Primary Impression: Abdominal pain Abdominal location: epigastric Qualified Code: R10.13 - Epigastric pain Condition: Stable Patient Instructions: Abdominal Pain, Gastritis (Adult) Additional Instructions: EXAMINES NO TIENE ENFERMA PELIGROSA. Cheque otro vez con barrera doctor primario en el proximo joya or regresa para mas o nueva simptomas- FARIDA FOSTER SANGRE. JOHN DONALDSON MD Mar 08, 2017 19:19
[2017-03-08] MEDS ORDERED: PANTOPRAZOLE 40 MG INJ IV ONE (19:30)
== END 2017-03-08 19:32 | disposition home or self-care (01) ==
LOC: FTE 16:55
DX: R10.13 Epigastric pain (principal); R11.0 Nausea
CPT/HCPCS: 36415; 74176; 76705; 80053; 81001; 83690; 85025; 96374; 96375; 96376; C9113; J2270; J2405; Z7502; Z7610

== ENCOUNTER 2017-10-08 17:59 | Emergency (ER) | END 2017-10-08 19:46 | disposition home or self-care (01) ==

== ENCOUNTER 2017-11-30 20:29 | Emergency (ER) | END 2017-12-01 02:00 | disposition home or self-care (01) ==

== ENCOUNTER 2017-12-05 17:23 | Emergency (ER) | END 2017-12-05 20:54 | disposition home or self-care (01) ==

== ENCOUNTER 2018-09-26 09:49 | Emergency (ER) | payer MEDICAID ==
[~2018-09-26] VITALS: Wt 122.9 kg
[~2018-09-26 09:49] MED LIST changes: +ACET500C5 PO; +ALBU8.5H8 INH; +AZIT250T PO; +BENZ-6 PO; -BENZ100C70 PO; +D-ME473S2 PO; +DOCU-144 PO; +GUAI473L22 PO; -HYDR-3011 PO; +HYDR-4011 PO; +HYDR-843 PO; -HYDR-906 PO; +IBUP-1541 PO; -IBUP400T22 PO; -IBUP800T25 PO; +IBUP800T48 PO; +LEVO750T25 PO; +PANT40TA3 PO
[2018-09-26 09:51] VITALS: BP 140/84; PULSE 94; RESP 20
[2018-09-26] MEDS ORDERED: PHEN-538 PO (10:48)
[2018-09-26] MEDS ORDERED: CEPH-443 PO (10:48)
--- NOTE | 2018-09-26 10:50 | ERD ---
ER Documentation Chief Complaint Chief Complaint dysuria HPI 37-year-old female presents with dysuria for the last week. She was last treated for UTI 3 months ago. She denies any fevers, vomiting, abdominal pain. Denies . ROS All systems reviewed and are negative except as per history of present illness. Medications Home Meds Active Scripts Phenazopyridine Hcl* (Pyridium*) 200 Mg Tab, 200 MG PO TID PRN for URINARY PAIN, #6 TAB Prov:JOHN DONALDSON MD 09/26/18 Cephalexin* (Keflex*) 500 Mg Capsule, 500 MG PO QID for 5 Days, CAP Prov:JOHN DONALDSON MD 09/26/18 Ibuprofen* (Motrin*) 600 Mg Tab, 600 MG PO Q8H PRN for PAIN, #20 TAB Prov:RICHIE DELGADILLO MD 12/05/17 Dextromethorphan Hb-Promethazine Hcl* (Promethazine DM* Syrup) 473 Ml Syrup, 10 ML PO Q6 PRN for COUGH, #120 ML Prov:RICHIE DELGADILLO MD 12/05/17 Levofloxacin* (Levaquin*) 750 Mg Tablet, 750 MG PO DAILY for 5 Days, TAB Prov:RICHIE DELGADILLO MD 12/05/17 Acetaminophen* (Tylophen*) 500 Mg Capsule, 1 CAP PO Q6H PRN for PAIN AND OR ELEVATED TEMP, #20 CAP Prov:CUCA INTERIANO NP 12/01/17 Ibuprofen* (Motrin*) 600 Mg Tab, 600 MG PO Q6H PRN for PAIN AND OR ELEVATED TEMP, #30 TAB Prov:CUCA INTERIANO NP 12/01/17 Cetirizine Hcl* (Zyrtec*) 10 Mg Capsule, 10 MG PO DAILY, #30 TAB.CHEW Prov:CUCA INTERIANO NP 12/01/17 Albuterol Sulfate* (Proair HFA*) 8.5 Gm Hfa.aer.ad, 2 PUFF INH Q4H PRN for WHEEZING AND SOB, #1 INHALER Prov:CUCA INTERIANO NP 12/01/17 Guaifenesin-Codeine Phosphate* (Guaifenesin* AC Cough Syrup) 473 Ml Liquid, 10 ML PO Q4H PRN for COUGH, #120 ML Prov:CUCA INTERIANO NP 12/01/17 Azithromycin* (Zithromax*) 250 Mg Tablet, 250 MG PO .ZPAMARLYN DIRECTED, #6 TAB TAKE 500 MG (2 TABS) THE FIRST DAY THEN 250 MG (1 TAB) DAYS 2-5 Prov:CUCA INTERIANO NP 12/01/17 Azithromycin* (Zithromax*) 250 Mg Tablet, 250 MG PO .KvngPAMARLYN DIRECTED, #6 TAB TAKE 500 MG (2 TABS) THE FIRST DAY THEN 250 MG (1 TAB) DAYS 2-5 Prov:RICHIE GONSALEZ PA-C 10/08/17 Benzonatate* (Tessalon Perle*) 100 Mg Capsule, 100 MG PO TID for 5 Days, CAP Prov:RICHIE GONSALEZ PA-C 10/08/17 Docusate Sodium* (Colace*) 100 Mg Capsule, 100 MG PO BID, #30 CAP Prov:JOHN DONALDSON MD 03/08/17 Hydrocodone/Acetaminophen ([place] 5-325 Tablet) 1 Each Tablet, 1 EACH PO QID, #12 TAB Prov:JOHN DONALDSON MD 03/08/17 Pantoprazole* (Protonix*) 40 Mg Tablet.dr, 40 MG PO DAILY, #20 TAB Prov:JOHN DONALDSON MD 03/08/17 Ibuprofen* (Motrin*) 600 Mg Tab, 600 MG PO Q6H PRN for PAIN AND OR ELEVATED TEMP, #30 TAB Prov:CUCA INTERIANO NP 11/22/16 Cephalexin* (Keflex*) 500 Mg Capsule, 500 MG PO QID for 10 Days, CAP Prov:CUCA INTERIANO NP 11/22/16 Sulfamethoxazole-Trimethoprim* (Bactrim* DS) 800-160 Mg Tab, 1 TAB PO BID for 10 Days, TAB Prov:CUCA INTERIANO NP 11/22/16 Clotrimazole* (Clotrimazole* AF) 1% - 30 Gm Cream.gm., 1 APPLIC TOP BID for 7 Days, TUB Prov:CUCA INTERIANO NP 11/22/16 Cetirizine Hcl* (Zyrtec*) 10 Mg Capsule, 10 MG PO DAILY, #30 TAB.CHEW Prov:CUCA INTERIANO [employer] 10/15/16 Polymyxin B Sulfate-TMP* (Polymyxin B-TMP Eye Drops*) 10 Ml Drops, 1 DROP BOTH EYES QID for 7 Days, EA Prov:CUCA INTERIANO [employer] 10/15/16 Slynvyuebbd-I-Qtsvazidob Hb* (Guaifenesin* DM Syrup) 120 Ml Syrup, 10 ML PO Q4H PRN for COUGH, #120 ML Prov:CUCA INTERIANO [employer] 10/15/16 Ibuprofen* (Motrin*) 600 Mg Tab, 600 MG PO Q6H PRN for PAIN AND OR ELEVATED TEMP, #30 TAB Prov:CUCA INTERIANO [employer] 10/15/16 Dextromethorphan Hb-Promethazine Hcl (Promethazine DM Syrup) 473 Ml Syrup, 10 ML PO Q6H PRN for COUGH, #4 OZ Prov:KASEYALYSSA Delacruz 09/29/16 Nitrofurantoin Monohyd Macrocr* (Macrobid*) 100 Mg Capsr, 100 MG PO BID for 7 Days, CAP Prov:ALYSSA PARKS 09/29/16 Nitrofurantoin Monohyd Macrocr* (Macrobid*) 100 Mg Capsr, 100 MG PO BID for 7 Days, CAP Prov:ALYSSA PARKS 09/13/16 Dextromethorphan Hb-Promethazine Hcl (Promethazine DM Syrup) 473 Ml Syrup, 10 ML PO Q6H PRN for COUGH, #4 OZ Prov:ALYSSA PARKS 09/13/16 Hydrocodone/Acetaminophen ([place] 5-325 Tablet) 1 Each Tablet, 1 EACH PO Q6, #15 TAB Prov:ALYSSA PARKS C 09/13/16 Ibuprofen* (Motrin*) 600 Mg Tab, 600 MG PO Q6, #14 TAB Prov:JOHN DONALDSON MD 06/01/16 Hydrocodone/Acetaminophen ([place] 5-325 Tablet) 1 Each Tablet, 1 TAB PO Q6H PRN for PAIN, #10 TAB Prov:JOHN DONALDSON MD 06/01/16 Sulfamethoxazole-Trimethoprim* (Bactrim* DS) 800-160 Mg Tab, 1 TAB PO BID for 10 Days, TAB Prov:JOHN DONALDSON MD 06/01/16 Cephalexin* (Keflex*) 500 Mg Capsule, 500 MG PO QID for 7 Days, CAP Prov:ARNULFO RASHID PA-C 01/16/16 Ibuprofen* (Motrin*) 800 Mg Tab, 800 MG PO Q6H PRN for PAIN AND OR ELEVATED TEMP, #30 TAB Prov:DEYA LIZ MD 12/04/15 Sulfamethoxazole-Trimethoprim* (Bactrim* DS) 800-160 Mg Tab, 1 TAB PO BID for 7 Days, TAB Prov:DEYA LIZ MD 12/04/15 Benzonatate* (Tessalon Perle*) 100 Mg Capsule, 100 MG PO TID, #12 CAP Prov:MELISSA CHILDERS-C 09/21/15 Acetaminophen* (Tylenol*) 325 Mg Tablet, 1 TAB PO Q4 PRN for PAIN AND OR ELEVATED TEMP, #30 TAB Prov:MELISSA CHILDERS-C 09/21/15 Ibuprofen* (Ibuprofen*) 400 Mg Tablet, 400 MG PO QID PRN for pa, #30 TAB Prov:CUCA INTERIANO NP 08/13/15 Hydroxyzine Hcl* (Hydroxyzine Hcl*) 25 Mg Tablet, 25 MG PO Q8H PRN for ITCHING, #30 TAB Prov:CUCA INTERIANO NP 08/13/15 Ljvxlinexqp-W-Fbytvszrkj Hb* (Guaifenesin* DM Syrup) 120 Ml Syrup, 10 ML PO Q4H PRN for COUGH, #120 ML Prov:CUCA INTERIANO NP 08/13/15 Loratadine* (Claritin*) 10 Mg Tablet, 10 MG PO DAILY, #30 TAB Prov:CUCA INTERIANO NP 08/13/15 Reported Medications [none] Unknown Strength No Conflict Check 08/13/15 Allergies Allergies: Coded Allergies: No Known Drug Allergies (Unverified Allergy, Unknown, 10/15/16) PMhx/Soc History of Surgery: No Anesthesia Reaction: No Hx Neurological Disorder: No Hx Respiratory Disorders: No Hx Cardiac Disorders: No Hx Psychiatric Problems: No Hx Miscellaneous Medical Probl: No Hx Alcohol Use: No Hx Substance Use: No Hx Tobacco Use: No Smoking Status: Never smoker FmHx Family History: No diabetes, No coronary disease, No other Physical Exam Vitals Vital Signs Date Temp Pulse Resp B/P (MAP) Pulse Ox O2 O2 Flow FiO2 Time Delivery Rate 09/26/18 97.7 94 20 140/84 100 09:51 (102) Physical Exam Const: No acute distress. Morbidly obese. Head: Atraumatic Eyes: Normal Conjunctiva ENT: Normal External Ears, Nose and Mouth. Neck: Full range of motion. No meningismus. Resp: Clear to auscultation bilaterally Cardio: Regular rate and rhythm, no murmurs Abd: Soft, non tender, non distended. Normal bowel sounds Skin: No petechiae or rashes Back: No midline or flank tenderness Ext: No cyanosis, or edema Neur: Awake and alert Psych: Normal Mood and Affect Results 24 hrs Laboratory Tests Test 09/26/18 10:18 09/26/18 10:20 Urine Color YELLOW Urine Clarity SLIGHTLY CLOUDY Urine pH 5.0 Urine Specific [place] 1.011 Urine Ketones NEGATIVE mg/dL Urine Nitrite NEGATIVE mg/dL Urine Bilirubin NEGATIVE mg/dL Urine Urobilinogen NEGATIVE mg/dL Urine Leukocyte Esterase 1+ Barry/ul Urine Microscopic RBC 3 /HPF Urine Microscopic WBC 6 /HPF Urine Squamous Epithelial Cells FEW /HPF Urine Mucus FEW /HPF Urine Hemoglobin 2+ mg/dL Urine Glucose NEGATIVE mg/dL Urine Total Protein NEGATIVE mg/dl POC Beta HCG, Qualitative NEGATIVE Current Medications Medications Dose Sig/Reinier Start Time Status Last (Trade) Ordered Route PRN Stop Time Admin Dose Reason Admin Cephalexin 500 mg ONCE ONCE 09/26/18 DC 09/26/18 (Keflex) PO 11:00 09/26/18 10:52 11:01 200 mg ONCE ONCE 09/26/18 DC 09/26/18 Phenazopyridi PO 11:00 09/26/18 10:52 ne HCl 11:01 (Pyridium) Procedures/MDM HCG negative. Urine shows white blood cells and leukocyte esterase. Patient was given Keflex and Pyridium by mouth. Patient presents with signs of uncomplicated cystitis without signs of abdominal pain, SIRS criteria, additional complications. She will treated with Keflex, Pyridium, instructions for fluids, return precautions for fevers, vomiting, abdominal pain, new worsening symptoms. The patient was stable with no new complaints during the ER course. Clinically, there is no current evidence to suggest meningitis, sepsis, acute abdomen, pneumonia, stroke, acute coronary syndrome, pulmonary embolism, aortic dissection or any other emergent condition appearing to require further evaluation or hospitalization. Patient counseled regarding my diagnostic impression and care plan. Prior to discharge all questions answered. Pt agrees with treatment plan and understands strict return precautions. Pt is instructed to follow up with primary care provider within 24-48 hours. Precautionary instructions provided including instructions to return to the ER if not improving or for any worsening or changing symptoms or concerns. Departure Diagnosis: Primary Impression: UTI (urinary tract infection) Urinary tract infection type: acute cystitis Hematuria presence: without hematuria Qualified Codes: N30.00 - Acute cystitis without hematuria Condition: Stable Patient Instructions: Understanding Urinary Tract Infections (UTIs) Additional Instructions: Cheque otro vez con barrera doctor primario en el proximo joya or regresa para mas o nueva simptomas- fiebre , vomito. JOHN DONALDSON MD Sep 26, 2018 10:50
[2018-09-26] MEDS ORDERED: PHENAZOPYRIDINE 100 MG TAB PO ONE (11:00)
[2018-09-26] MEDS ORDERED: CEPHALEXIN 500 MG CAP PO ONE (11:00)
== END 2018-09-26 11:09 | disposition home or self-care (01) ==
LOC: FTE 09:49
DX: N30.00 Acute cystitis without hematuria (principal)
CPT/HCPCS: 81001; 81025; Z7502; Z7610; 99283

== ENCOUNTER 2018-10-01 06:13 | Emergency (ER) | payer MEDICAID ==
[~2018-10-01] VITALS: Ht 156.2 cm; Wt 124.8 kg
[~2018-10-01 06:13] MED LIST changes: +PHEN-538 PO
[2018-10-01 06:15] VITALS: Ht 156.2 cm; Wt 124.8 kg
[2018-10-01] MEDS ORDERED: morphine 4 MG/ML VIAL IV STA (06:50)
[2018-10-01] MEDS ORDERED: ONDANSETRON 4 MG INJ IV STA (06:50)
[2018-10-01] MEDS ORDERED: SOD CHLORIDE 0.9% 500 ML IV STA (06:50)
[2018-10-01] MEDS ORDERED: CEFTRIAXONE 1 GM/50 ML (PMX) 50 ML IVPB ONE (08:00)
[2018-10-01] MEDS ORDERED: CIPR500T4 PO (08:12)
--- NOTE | 2018-10-01 08:15 | ERD ---
ER Documentation Chief Complaint Chief Complaint oniel flank pains x 3 days w/dysuria HPI 37-year-old female presents the emergency department complaining of low back pain. Patient states that over the last 3 days, she has had pain localized to her lower back and bilateral flanks associated with dysuria. She has had urinary frequency. She reports no fevers chills. She reports no vomiting. She reports no diarrhea. Her pain is currently described as mild to moderate. ROS All systems reviewed and are negative except as per history of present illness. Medications Home Meds Active Scripts Ciprofloxacin Hcl* (Ciprofloxacin Hcl*) 500 Mg Tablet, 500 MG PO BID for 10 Days, TAB Prov:HOMA LO 10/01/18 Phenazopyridine Hcl* (Pyridium*) 200 Mg Tab, 200 MG PO TID PRN for URINARY PAIN, #6 TAB Prov:JOHN DONALDSON MD 09/26/18 Cephalexin* (Keflex*) 500 Mg Capsule, 500 MG PO QID for 5 Days, CAP Prov:JOHN DONALDSON MD 09/26/18 Ibuprofen* (Motrin*) 600 Mg Tab, 600 MG PO Q8H PRN for PAIN, #20 TAB Prov:RICHIE DELGADILLO MD 12/05/17 Dextromethorphan Hb-Promethazine Hcl* (Promethazine DM* Syrup) 473 Ml Syrup, 10 ML PO Q6 PRN for COUGH, #120 ML Prov:RICHIE DELGADILLO MD 12/05/17 Levofloxacin* (Levaquin*) 750 Mg Tablet, 750 MG PO DAILY for 5 Days, TAB Prov:RICHIE DELGADILLO MD 12/05/17 Acetaminophen* (Tylophen*) 500 Mg Capsule, 1 CAP PO Q6H PRN for PAIN AND OR ELEVATED TEMP, #20 CAP Prov:CUCA INTERIANO NP 12/01/17 Ibuprofen* (Motrin*) 600 Mg Tab, 600 MG PO Q6H PRN for PAIN AND OR ELEVATED TEMP, #30 TAB Prov:CUCA INTERIANO NP 12/01/17 Cetirizine Hcl* (Zyrtec*) 10 Mg Capsule, 10 MG PO DAILY, #30 TAB.CHEW Prov:CUCA INTERIANO NP 3/8/18 Albuterol Sulfate* (Proair HFA*) 8.5 Gm Hfa.aer.ad, 2 PUFF INH Q4H PRN for WHEEZING AND SOB, #1 INHALER Prov:CUCA INTERIANO NP 12/01/17 Guaifenesin-Codeine Phosphate* (Guaifenesin* AC Cough Syrup) 473 Ml Liquid, 10 ML PO Q4H PRN for COUGH, #120 ML Prov:CUCA INTERIANO NP 12/01/17 Azithromycin* (Zithromax*) 250 Mg Tablet, 250 MG PO .ZPACK DIRECTED, #6 TAB TAKE 500 MG (2 TABS) THE FIRST DAY THEN 250 MG (1 TAB) DAYS 2-5 Prov:CUCA INTERIANO NP 12/01/17 Azithromycin* (Zithromax*) 250 Mg Tablet, 250 MG PO .ZPACK DIRECTED, #6 TAB TAKE 500 MG (2 TABS) THE FIRST DAY THEN 250 MG (1 TAB) DAYS 2-5 Prov:RICHIE GONSALEZ PA-C 10/08/17 Benzonatate* (Tessalon Perle*) 100 Mg Capsule, 100 MG PO TID for 5 Days, CAP Prov:RICHIE GONSALEZ PA-C 10/08/17 Docusate Sodium* (Colace*) 100 Mg Capsule, 100 MG PO BID, #30 CAP Prov:JOHN DONALDSON MD 03/08/17 Hydrocodone/Acetaminophen ([place] 5-325 Tablet) 1 Each Tablet, 1 EACH PO QID, #12 TAB Prov:JOHN DONALDSON MD 03/08/17 Pantoprazole* (Protonix*) 40 Mg Tablet.dr, 40 MG PO DAILY, #20 TAB Prov:JOHN DONALDSON MD 03/08/17 Ibuprofen* (Motrin*) 600 Mg Tab, 600 MG PO Q6H PRN for PAIN AND OR ELEVATED TEMP, #30 TAB Prov:CUCA INTERIANO NP 11/22/16 Cephalexin* (Keflex*) 500 Mg Capsule, 500 MG PO QID for 10 Days, CAP Prov:CUCA INTERIANO NP 11/22/16 Sulfamethoxazole-Trimethoprim* (Bactrim* DS) 800-160 Mg Tab, 1 TAB PO BID for 10 Days, TAB Prov:CUCA INTERIANO CUSTOMER CARE ASSISTANT 11/22/16 Clotrimazole* (Clotrimazole* AF) 1% - 30 Gm Cream.gm., 1 APPLIC TOP BID for 7 Days, TUB Prov:CUCA INTERIANO CUSTOMER CARE ASSISTANT 11/22/16 Cetirizine Hcl* (Zyrtec*) 10 Mg Capsule, 10 MG PO DAILY, #30 TAB.CHEW Prov:CUCA INTERIANO CUSTOMER CARE ASSISTANT 10/15/16 Polymyxin B Sulfate-TMP* (Polymyxin B-TMP Eye Drops*) 10 Ml Drops, 1 DROP BOTH EYES QID for 7 Days, EA Prov:CUCA INTERIANO CUSTOMER CARE ASSISTANT 10/15/16 Zgmgddrdlxr-Q-Ldumthrsyd Hb* (Guaifenesin* DM Syrup) 120 Ml Syrup, 10 ML PO Q4H PRN for COUGH, #120 ML Prov:CUCA INTERIANO NP 10/15/16 Ibuprofen* (Motrin*) 600 Mg Tab, 600 MG PO Q6H PRN for PAIN AND OR ELEVATED TEMP, #30 TAB Prov:CUCA INTERIANO CUSTOMER CARE ASSISTANT 10/15/16 Dextromethorphan Hb-Promethazine Hcl (Promethazine DM Syrup) 473 Ml Syrup, 10 ML PO Q6H PRN for COUGH, #4 OZ Prov:ALYSSA PARKS 09/29/16 Nitrofurantoin Monohyd Macrocr* (Macrobid*) 100 Mg Capsr, 100 MG PO BID for 7 Days, CAP Prov:ALYSSA PARKS 09/29/16 Nitrofurantoin Monohyd Macrocr* (Macrobid*) 100 Mg Capsr, 100 MG PO BID for 7 Days, CAP Prov:ALYSSA PARKS 09/13/16 Dextromethorphan Hb-Promethazine Hcl (Promethazine DM Syrup) 473 Ml Syrup, 10 ML PO Q6H PRN for COUGH, #4 OZ Prov:ALYSSA PARKS 09/13/16 Hydrocodone/Acetaminophen ([place] 5-325 Tablet) 1 Each Tablet, 1 EACH PO Q6, #15 TAB Prov:ALYSSA PARKS 09/13/16 Ibuprofen* (Motrin*) 600 Mg Tab, 600 MG PO Q6, #14 TAB Prov:JOHN DONALDSON MD 06/01/16 Hydrocodone/Acetaminophen ([place] 5-325 Tablet) 1 Each Tablet, 1 TAB PO Q6H PRN for PAIN, #10 TAB Prov:JOHN DONALDSON MD 06/01/16 Sulfamethoxazole-Trimethoprim* (Bactrim* DS) 800-160 Mg Tab, 1 TAB PO BID for 10 Days, TAB Prov:JOHN DONALDSON MD 06/01/16 Cephalexin* (Keflex*) 500 Mg Capsule, 500 MG PO QID for 7 Days, CAP Prov:ARNULFO RASHID PA-C 01/16/16 Ibuprofen* (Motrin*) 800 Mg Tab, 800 MG PO Q6H PRN for PAIN AND OR ELEVATED TEMP, #30 TAB Prov:DEYA LIZ MD 12/04/15 Sulfamethoxazole-Trimethoprim* (Bactrim* DS) 800-160 Mg Tab, 1 TAB PO BID for 7 Days, TAB Prov:DEYA LIZ MD 12/04/15 Benzonatate* (Tessalon Perle*) 100 Mg Capsule, 100 MG PO TID, #12 CAP Prov:MELISSA CHILDERS PA-C 09/21/15 Acetaminophen* (Tylenol*) 325 Mg Tablet, 1 TAB PO Q4 PRN for PAIN AND OR E LEVATED TEMP, #30 TAB Prov:MELISSA CHILDERS PA-C 09/21/15 Ibuprofen* (Ibuprofen*) 400 Mg Tablet, 400 MG PO QID PRN for pa, #30 TAB Prov:CUCA INTERIANO NP 08/13/15 Hydroxyzine Hcl* (Hydroxyzine Hcl*) 25 Mg Tablet, 25 MG PO Q8H PRN for ITCHING, #30 TAB Prov:CUCA INTERIANO NP 08/13/15 Jyscbupiqif-L-Mdxmwrtaur Hb* (Guaifenesin* DM Syrup) 120 Ml Syrup, 10 ML PO Q4H PRN for COUGH, #120 ML Prov:CUCA INTERIANO NP 08/13/15 Loratadine* (Claritin*) 10 Mg Tablet, 10 MG PO DAILY, #30 TAB Prov:CUCA INTERIANO JC Sidhu NP 08/13/15 Reported Medications [none] Unknown Strength No Conflict Check 08/13/15 Allergies Allergies: Coded Allergies: No Known Drug Allergies (Unverified Allergy, Unknown, 10/15/16) PMhx/Soc History of Surgery: No Anesthesia Reaction: No Hx Neurological Disorder: No Hx Respiratory Disorders: No Hx Cardiac Disorders: No Hx Psychiatric Problems: No Hx Miscellaneous Medical Probl: No Hx Alcohol Use: No Hx Substance Use: No Hx Tobacco Use: No Smoking Status: Never smoker FmHx Noncontributory for chief complaint Physical Exam Vitals Vital Signs Date Temp Pulse Resp B/P (MAP) Pulse Ox O2 O2 Flow FiO2 Time Delivery Rate 10/01/18 98.6 86 20 126/61 97 06:15 (82) Physical Exam GENERAL: Patient is a morbidly obese female who appears uncomfortable but in no acute distress HEENT: Pupils equal, round, and reactive to light. EOMI. There is no scleral icterus. NECK: C-spine is soft and supple, there is no meningismus. There is no cervical lymphadenopathy. LUNGS: Clear to auscultation bilaterally. There are no rales, wheezes or rhonchi. HEART: Regular rate and rhythm, no murmurs, clicks, rubs or gallops. ABDOMEN: Soft, non-tender, non-distended. There are bowel sounds in all four quadrants. No rebound or guarding. No CVA tenderness EXTREMITIES: There is no peripheral cyanosis or edema. No focal swelling or erythema. NEURO: The patient moves all four extremities with 5/5 strength. Cranial nerves II - XII are intact. Normal gait. Alert and oriented SKIN: There is no apparent rash or petechiae. HEME/LYMPHATIC: There is no evidence of excessive bruising or lymphedema. PSYCHIATRIC: The patient does not appear anxious or depressed. Result Diagram: 10/01/18 0657 10/01/1857 Results 24 hrs Laboratory Tests Test 10/01/18 06:57 10/01/18 07:04 White Blood Count 9.3 10^3/ul Red Blood Count 4.56 10^6/ul Hemoglobin 13.0 g/dl Hematocrit 39.9 % Mean Corpuscular Volume 87.5 fl Mean Corpuscular Hemoglobin 28.5 pg Mean Corpuscular Hemoglobin Concent 32.6 g/dl Red Cell Distribution Width 13.1 % Platelet Count 227 10^3/UL Mean Platelet Volume 10.3 fl Immature Granulocytes % 1.100 % Neutrophils % 65.0 % Lymphocytes % 24.4 % Monocytes % 6.3 % Eosinophils % 2.9 % Basophils % 0.3 % Nucleated Red Blood Cells % 0.0 /100WBC Immature Granulocytes # 0.100 10^3/ul Neutrophils # 6.0 10^3/ul Lymphocytes # 2.3 10^3/ul Monocytes # 0.6 10^3/ul Eosinophils # 0.3 10^3/ul Basophils # 0.0 10^3/ul Nucleated Red Blood Cells # 0.0 10^3/ul Sodium Level 142 mmol/L Potassium Level 4.4 mmol/L Chloride Level 106 mmol/L Carbon Dioxide Level 28 mmol/L Anion Gap 8 Blood Urea Nitrogen 17 mg/dl Creatinine 0.53 mg/dl Est Glomerular Filtrat Rate mL/min > 60 mL/min Glucose Level 131 mg/dl Calcium Level 9.1 mg/dl Total Bilirubin 0.2 mg/dl Direct Bilirubin 0.00 mg/dl Indirect Bilirubin 0.2 mg/dl Aspartate Amino Transf (AST/SGOT) 34 IU/L Alanine Aminotransferase (ALT/SGPT) 28 IU/L Alkaline Phosphatase 82 IU/L Total Protein 8.3 g/dl Albumin 4.2 g/dl Globulin 4.10 g/dl Albumin/Globulin Ratio 1.02 Lipase 96 U/L Urine Color YELLOW Urine Clarity SLIGHTLY CLOUDY Urine pH 5.0 Urine Specific [place] 1.012 Urine Ketones NEGATIVE mg/dL Urine Nitrite NEGATIVE mg/dL Urine Bilirubin NEGATIVE mg/dL Urine Urobilinogen NEGATIVE mg/dL Urine Leukocyte Esterase 3+ Barry/ul Urine Microscopic RBC 16 /HPF Urine Microscopic WBC 18 /HPF Urine Squamous Epithelial Cells MODERATE /HPF Urine Bacteria FEW /HPF Urine Hemoglobin 2+ mg/dL Urine Glucose NEGATIVE mg/dL Urine Total Protein NEGATIVE mg/dl Current Medications Medications Dose Sig/Reinier Start Time Status Last (Trade) Ordered Route PRN Stop Time Admin Dose Reason Admin Sodium 500 ml @ Q1H STAT 10/01/18 DC 10/01/18 Chloride 500 mls/hr IV 06:50 10/01/18 07:07 07:49 Morphine 4 mg ONCE STAT 10/01/18 DC 10/01/18 Sulfate IV 06:50 10/01/18 07:08 (morphine) 06:52 Ondansetron 4 mg ONCE STAT 10/01/18 DC 10/01/18 HCl (Zofran IV 06:50 10/01/18 07:08 Inj) 06:52 Ceftriaxone 50 ml @ ONCE ONCE 10/01/18 Sodium 100 mls/hr IVPB 08:00 10/01/18 08:29 Procedures/MDM Patient was taken to a room, seen and evaluated. Comfort measures were initiated. Diagnostic tests were ordered and reviewed. 3 LEAD RHYTHM STRIP: Normal sinus rhythm without ectopy REEVALUATION: 0810: After diagnostic tests were appreciated, patient was reevaluated. She remained nontoxic with her pain improved. MEDICAL DECISION MAKIN-year-old obese female presents emergency room with b ack pain. Differential diagnosis entertained included musculoskeletal, infectious and other concerns. Patient has evidence of a urinary tract infection and may have a mild pyelonephritis. However, she does not appear to be septic or dehydrated. After antibiotics, she appears to be clinically well and appropriate for outpatient supportive care. Departure Diagnosis: Primary Impression: UTI (urinary tract infection) Condition: Stable Patient Instructions: Urinary Tract Infections in Women Additional Instructions: Consulte a barrera mdico para el seguimiento segn lo discutido. Lleve carley copia de los resultados de barrera prueba, si corresponde, a esta visita de seguimiento. Consulte a barrera mdico o regrese aqu si vanesa sntomas no mejoran sebastian se esperaba. En cualquier momento, regrese al departamento de emergencias por cualquier cambio o empeoramiento en vanesa sntomas. HOMA LO Oct 01, 2018 08:15
[2018-10-01] MEDS ORDERED: ACETAMINOPHEN 500 MG TAB PO STA (08:55)
[2018-10-01 09:38] VITALS: BP 98/78; PULSE 78; RESP 18
== END 2018-10-01 09:39 | disposition home or self-care (01) ==
LOC: E/R 06:13
DX: N39.0 Urinary tract infection, site not specified (principal)
CPT/HCPCS: 36415; 80053; 81001; 83690; 85025; 96374; 96375; J0696; J2270; J2405; J7040; Z7502; Z7610

== ENCOUNTER 2018-12-08 18:57 | Emergency (ER) | payer MEDICAID ==
[~2018-12-08] VITALS: Ht 167.6 cm; Wt 124.8 kg
[~2018-12-08 18:57] MED LIST changes: +CIPR500T4 PO
[2018-12-08 19:07] VITALS: Ht 167.6 cm; Wt 124.8 kg
[2018-12-08] MEDS ORDERED: SOD CHLORIDE 0.9% 1,000 ML IV STA (23:43)
[2018-12-09] MEDS ORDERED: KETOROLAC 30 MG INJ IV STA (01:48)
[2018-12-09] MEDS ORDERED: NITR-58 PO (01:54)
[2018-12-09] MEDS ORDERED: BENZ-6 PO (01:54)
[2018-12-09] MEDS ORDERED: IBUP-1542 PO (01:54)
--- NOTE | 2018-12-09 01:59 | ERD ---
ER Documentation Chief Complaint Chief Complaint achy throat & productive cough & vag bleed x 5 days HPI 38-year-old female patient with no significant past medical history presents to ED complaint of vaginal bleeding that occurred intermittently for 1 week. States that she has had changed 24 pads per day. Denies any nausea, vomiting, diarrhea, neck stiffness. ROS All systems reviewed and are negative except as per history of present illness. Medications Home Meds Active Scripts Ibuprofen* (Motrin*) 600 Mg Tab, 600 MG PO Q6, #30 TAB Prov:SAMMY GUPTA PA-C 12/09/18 Nitrofurantoin Monohyd Macrocr* (Macrobid*) 100 Mg Capsr, 100 MG PO BID for 7 Days, CAP Prov:SAMMY GUPTA PA-C 12/09/18 Benzonatate* (Tessalon Perle*) 100 Mg Capsule, 100 MG PO Q8H PRN for COUGH, #20 CAP Prov:SAMMY GUPTA PA-C 12/09/18 Ciprofloxacin Hcl* (Ciprofloxacin Hcl*) 500 Mg Tablet, 500 MG PO BID for 10 Days, TAB Prov:HOMA LO 10/01/18 Phenazopyridine Hcl* (Pyridium*) 200 Mg Tab, 200 MG PO TID PRN for URINARY PAIN, #6 TAB Prov:JOHN DONALDSON MD 09/26/18 Cephalexin* (Keflex*) 500 Mg Capsule, 500 MG PO QID for 5 Days, CAP Prov:JOHN DONALDSON MD 09/26/18 Ibuprofen* (Motrin*) 600 Mg Tab, 600 MG PO Q8H PRN for PAIN, #20 TAB Prov:RICHIE DELGADILLO MD 12/05/17 Dextromethorphan Hb-Promethazine Hcl* (Promethazine DM* Syrup) 473 Ml Syrup, 10 ML PO Q6 PRN for COUGH, #120 ML Prov:RICHIE DELGADILLO MD 12/05/17 Levofloxacin* (Levaquin*) 750 Mg Tablet, 750 MG PO DAILY for 5 Days, TAB Prov:RICHIE DELGADILLO MD 12/05/17 Acetaminophen* (Tylophen*) 500 Mg Capsule, 1 CAP PO Q6H PRN for PAIN AND OR ELEVATED TEMP, #20 CAP Prov:CUCA INTERIANO NP 12/01/17 Ibuprofen* (Motrin*) 600 Mg Tab, 600 MG PO Q6H PRN for PAIN AND OR ELEVATED TEMP, #30 TAB Prov:CUCA INTERIANO NP 12/01/17 Cetirizine Hcl* (Zyrtec*) 10 Mg Capsule, 10 MG PO DAILY, #30 TAB.CHEW Prov:CUCA INTERIANO NP 12/01/17 Albuterol Sulfate* (Proair HFA*) 8.5 Gm Hfa.aer.ad, 2 PUFF INH Q4H PRN for WHEEZING AND SOB, #1 INHALER Prov:CUCA INTERIANO NP 12/01/17 Guaifenesin-Codeine Phosphate* (Guaifenesin* AC Cough Syrup) 473 Ml Liquid, 10 ML PO Q4H PRN for COUGH, #120 ML Prov:CUCA INTERIANO NP 12/01/17 Azithromycin* (Zithromax*) 250 Mg Tablet, 250 MG PO .KvngPAMARLYN DIRECTED, #6 TAB TAKE 500 MG (2 TABS) THE FIRST DAY THEN 250 MG (1 TAB) DAYS 2-5 Prov:CUCA INTERIANO NP 12/01/17 Azithromycin* (Zithromax*) 250 Mg Tablet, 250 MG PO .KvngPAMARLYN DIRECTED, #6 TAB TAKE 500 MG (2 TABS) THE FIRST DAY THEN 250 MG (1 TAB) DAYS 2-5 Prov:RICHIE GONSALEZ PA-C 10/08/17 Benzonatate* (Tessalon Perle*) 100 Mg Capsule, 100 MG PO TID for 5 Days, CAP Prov:RICHIE GONSALEZ PA-C 10/08/17 Docusate Sodium* (Colace*) 100 Mg Capsule, 100 MG PO BID, #30 CAP Prov:JOHN DONALDSON MD 03/08/17 Hydrocodone/Acetaminophen ([place] 5-325 Tablet) 1 Each Tablet, 1 EACH PO QID, #12 TAB Prov:JOHN DONALDSON MD 03/08/17 Pantoprazole* (Protonix*) 40 Mg Tablet.dr, 40 MG PO DAILY, #20 TAB Prov:JOHN DONALDSON MD 03/08/17 Ibuprofen* (Motrin*) 600 Mg Tab, 600 MG PO Q6H PRN for PAIN AND OR ELEVATED TEMP, #30 TAB Prov:CUCA INTERIANO NP 11/22/16 Cephalexin* (Keflex*) 500 Mg Capsule, 500 MG PO QID for 10 Days, CAP Prov:CUCA INTERIANO NP 11/22/16 Sulfamethoxazole-Trimethoprim* (Bactrim* DS) 800-160 Mg Tab, 1 TAB PO BID for 10 Days, TAB Prov:CUCA INTERIANO NP 11/22/16 Clotrimazole* (Clotrimazole* AF) 1% - 30 Gm Cream.gm., 1 APPLIC TOP BID for 7 Days, TUB Prov:CUCA INTERIANO NP 11/22/16 Cetirizine Hcl* (Zyrtec*) 10 Mg Capsule, 10 MG PO DAILY, #30 TAB.CHEW Prov:CUCA INTERIANO NP 10/15/16 Polymyxin B Sulfate-TMP* (Polymyxin B-TMP Eye Drops*) 10 Ml Drops, 1 DROP BOTH EYES QID for 7 Days, EA Prov:CUCA INTERIANO NP 10/15/16 Mudchszfxfs-O-Sqcydiopch Hb* (Guaifenesin* DM Syrup) 120 Ml Syrup, 10 ML PO Q4H PRN for COUGH, #120 ML Prov:CUCA INTERIANO NP 10/15/16 Ibuprofen* (Motrin*) 600 Mg Tab, 600 MG PO Q6H PRN for PAIN AND OR ELEVATED TEMP, #30 TAB Prov:CUCA INTERIANO NP 10/15/16 Dextromethorphan Hb-Promethazine Hcl (Promethazine DM Syrup) 473 Ml Syrup, 10 ML PO Q6H PRN for COUGH, #4 OZ Prov:ALYSSA PARKS 09/29/16 Nitrofurantoin Monohyd Macrocr* (Macrobid*) 100 Mg Capsr, 100 MG PO BID for 7 Days, CAP Prov:ALYSSA PARKS 09/29/16 Nitrofurantoin Monohyd Macrocr* (Macrobid*) 100 Mg Capsr, 100 MG PO BID for 7 Days, CAP Prov:KASEYHERMELINDAALYSSA C 09/13/16 Dextromethorphan Hb-Promethazine Hcl (Promethazine DM Syrup) 473 Ml Syrup, 10 ML PO Q6H PRN for COUGH, #4 OZ Prov:HERMELINDA PARKSMARLON Delacruz 09/13/16 Hydrocodone/Acetaminophen ([place] 5-325 Tablet) 1 Each Tablet, 1 EACH PO Q6, #15 TAB Prov:ALYSSA PARKS 09/13/16 Ibuprofen* (Motrin*) 600 Mg Tab, 600 MG PO Q6, #14 TAB Prov:JOHN DONALDSON MD 06/01/16 Hydrocodone/Acetaminophen ([place] 5-325 Tablet) 1 Each Tablet, 1 TAB PO Q6H PRN for PAIN, #10 TAB Prov:JOHN DONALDSON MD 06/01/16 Sulfamethoxazole-Trimethoprim* (Bactrim* DS) 800-160 Mg Tab, 1 TAB PO BID for 10 Days, TAB Prov:JOHN DONALDSON MD 06/01/16 Cephalexin* (Keflex*) 500 Mg Capsule, 500 MG PO QID for 7 Days, CAP Prov:ARNULFO RASHID PA-C 01/16/16 Ibuprofen* (Motrin*) 800 Mg Tab, 800 MG PO Q6H PRN for PAIN AND OR ELEVATED TEMP, #30 TAB Prov:DEYA LIZ MD 12/04/15 Sulfamethoxazole-Trimethoprim* (Bactrim* DS) 800-160 Mg Tab, 1 TAB PO BID for 7 Days, TAB Prov:DEYA LIZ MD 12/04/15 Benzonatate* (Tessalon Perle*) 100 Mg Capsule, 100 MG PO TID, #12 CAP Prov:MELISSA CHILDERS PA-C 09/21/15 Acetaminophen* (Tylenol*) 325 Mg Tablet, 1 TAB PO Q4 PRN for PAIN AND OR ELEVATED TEMP, #30 TAB Prov:MELISSA CHILDERS PA-C 09/21/15 Ibuprofen* (Ibuprofen*) 400 Mg Tablet, 400 MG PO QID PRN for pa, #30 TAB Prov:CUCA INTERIANO NP 08/13/15 Hydroxyzine Hcl* (Hydroxyzine Hcl*) 25 Mg Tablet, 25 MG PO Q8H PRN for ITCHING, #30 TAB Prov:CUCA INTERIANO NP 08/13/15 Zlcmemutojo-U-Urnevtbiaz Hb* (Guaifenesin* DM Syrup) 120 Ml Syrup, 10 ML PO Q4H PRN for COUGH, #120 ML Prov:CUCA INTERIANO NP 08/13/15 Loratadine* (Claritin*) 10 Mg Tablet, 10 MG PO DAILY, #30 TAB Prov:CUCA INTERIANO NP 08/13/15 Reported Medications [none] Unknown Strength No Conflict Check 08/13/15 Allergies Allergies: Coded Allergies: No Known Drug Allergies (Unverified Allergy, Unknown, 12/08/18) PMhx/Soc Medical and Surgical Hx: pt denies Surgical Hx History of Surgery: No Anesthesia Reaction: No Hx Neurological Disorder: No Hx Respiratory Disorders: No Hx Cardiac Disorders: No Hx Psychiatric Problems: No Hx Miscellaneous Medical Probl: Yes (prediabetic) Hx Alcohol Use: No Hx Substance Use: No Hx Tobacco Use: No Smoking Status: Never smoker FmHx Family History: No diabetes, No coronary disease Physical Exam Vitals Vital Signs Date Temp Pulse Resp B/P (MAP) Pulse Ox O2 O2 Flow FiO2 Time Delivery Rate 12/09/18 97.8 72 16 106/68 98 Room Air 02:18 (81) 12/08/18 98.8 100 18 152/80 99 19:07 (104) Physical Exam Const: Gij-lya-yzzqnrsio, well-nourished. In no acute distress. Head: Atraumatic, normocephalic Eyes: Normal Conjunctiva without injection. No purulent discharge. ENT: Normal external ear, nose. Moist oropharynx without tonsillar exudates. Non-erythematous pharynx. Uvula midline. No drooling. No trismus. Neck: No cervical midline tenderness. Full range of motion. No meningismus. No cervical lymphadenopathy. No JVD. Resp: Clear to auscultation bilaterally. No wheezing, rhonchi, rales, or crackles. No accessory muscle use. No retractions. Cardio: Regular rate and rhythm. No murmurs, rubs or gallops. Abd: Soft, nontender, non distended. Normal bowel sounds. No palpable masses. No rebound tenderness. No guarding. Negative McBurney's point. Negative psoas sign. Negative obturator sign. Skin: No petechiae or rashes Back: No midline tenderness. No CVA tenderness. Ext: No cyanosis, or edema. Neur: Awake and alert. Normal gait. Normal coordination. Psych: Normal Mood and Affect Results 24 hrs Laboratory Tests Test 12/09/18 00:21 12/09/18 00:30 White Blood Count 10.3 10^3/ul Red Blood Count 4.61 10^6/ul Hemoglobin 13.2 g/dl Hematocrit 40.0 % Mean Corpuscular Volume 86.8 fl Mean Corpuscular Hemoglobin 28.6 pg Mean Corpuscular Hemoglobin Concent 33.0 g/dl Red Cell Distribution Width 13.3 % Platelet Count 251 10^3/UL Mean Platelet Volume 10.3 fl Immature Granulocytes % 1.000 % Neutrophils % 70.5 % Lymphocytes % 20.3 % Monocytes % 6.0 % Eosinophils % 1.7 % Basophils % 0.5 % Nucleated Red Blood Cells % 0.0 /100WBC Immature Granulocytes # 0.100 10^3/ul Neutrophils # 7.3 10^3/ul Lymphocytes # 2.1 10^3/ul Monocytes # 0.6 10^3/ul Eosinophils # 0.2 10^3/ul Basophils # 0.1 10^3/ul Nucleated Red Blood Cells # 0.0 10^3/ul Urine Color RED Urine Clarity CLOUDY Urine pH 6.0 Urine Specific Jewell 1.014 Urine Ketones NEGATIVE mg/dL Urine Nitrite NEGATIVE mg/dL Urine Bilirubin NEGATIVE mg/dL Urine Urobilinogen NEGATIVE mg/dL Urine Leukocyte Esterase TRACE Barry/ul Urine Microscopic RBC > 182 /HPF Urine Microscopic WBC 0 /HPF Urine Squamous Epithelial Cells FEW /HPF Urine Bacteria FEW /HPF Urine Mucus FEW /HPF Urine Hemoglobin 3+ mg/dL Urine Glucose NEGATIVE mg/dL Urine Total Protein 2+ mg/dl Sodium Level 140 mmol/L Potassium Level 3.8 mmol/L Chloride Level 105 mmol/L Carbon Dioxide Level 26 mmol/L Anion Gap 9 Blood Urea Nitrogen 11 mg/dl Creatinine 0.47 mg/dl Est Glomerular Filtrat Rate mL/min > 60 mL/min Glucose Level 143 mg/dl Calcium Level 9.2 mg/dl Total Bilirubin 0.3 mg/dl Direct Bilirubin 0.00 mg/dl Indirect Bilirubin 0.3 mg/dl Aspartate Amino Transf (AST/SGOT) 45 IU/L Alanine Aminotransferase (ALT/SGPT) 47 IU/L Alkaline Phosphatase 86 IU/L Total Protein 8.0 g/dl Albumin 4.2 g/dl Globulin 3.80 g/dl Albumin/Globulin Ratio 1.10 Lipase 70 U/L POC Beta HCG, Qualitative NEGATIVE Current Medications Medications Dose Sig/Reinier Start Time Status Last (Trade) Ordered Route PRN Stop Time Admin Dose Reason Admin Sodium 1,000 ml @ Q1H STAT 12/08/18 DC 12/09/18 Chloride 1,000 mls/hr IV 23:43 00:32 12/09/18 00:42 Ketorolac 30 mg ONCE STAT 12/09/18 DC 12/09/18 Tromethamine IV 01:48 01:56 (Toradol) 12/09/18 01:49 Procedures/MDM 38-year-old female patient with no significant past medical history presents to ED complaining of vaginal bleeding that started 1 week ago. Patient is afebrile and nontoxic-appearing. Patient was further worked up with CBC, CMP, lipase, UA, pelvic ultrasound. Patient's pain and symptoms have improved after treatment with 1 L normal saline, 30 mg IV Toradol. CBC: No leukocytosis. No e/o of systemic infection. No e/o anemia. CMP: No e/o severe acidosis, alkalosis, renal failure, diabetic ketoacidosis, liver disease Lipase within normal limits. Urine: Trace leukocyte esterase, no nitrites, 3+ hematuria. Urine : Negative Patient has a urinary tract infection. Low suspicion for ectopic , ovarian torsion, gastritis, GERD, peptic ulcer disease, cholecystitis, choledocholithiasis, cholangitis, pancreatitis, appendicitis, bowel obstruction, ileus, volvulus, nephrolithiasis, pyelonephritis, hepatitis, perforated viscus, diverticulitis, strangulated/incarcerated hernia, DKA, acute abdomen, mesenteric ischemia, pneumothorax, pneumonia, PE, atypical [place], AAA,aortic dissection, or other emergent conditions. Diagnosis: Cough, Vaginal Bleeding Discharge medications: Ibuprofen, Macrobid Follow up with primary care physician in 1-2 days. Instructed patient to return to the ED sooner for any worsening symptoms. Patient's questions were answered. Patient is hemodynamically stable. Patient understood and agreed with discharge plan. Patient discharged stable. Disclaimer: Inadvertent spelling and grammatical errors are likely due to EHR/dictation software use and do not reflect on the overall quality of patient care. Also, please note that the electronic time recorded on this note does not necessarily reflect the actual time of the patient encounter. Departure Diagnosis: Primary Impression: Cough Additional Impression: Vaginal bleeding Condition: Stable Patient Instructions: Dysfunctional Uterine Bleeding, Uri, Viral, No Abx (Adult) Referrals: [facility] YOU HAVE RECEIVED A MEDICAL SCREENING EXAM AND THE RESULTS INDICATE THAT YOU DO NOT HAVE A CONDITION THAT REQUIRES URGENT TREATMENT IN THE EMERGENCY DEPARTMENT. FURTHER EVALUATION AND TREATMENT OF YOUR CONDITION CAN WAIT UNTIL YOU ARE SEEN IN YOUR DOCTORS OFFICE WITHIN THE NEXT 1-2 DAYS. IT IS YOUR RESPONSIBILITY TO MAKE AN APPOINTMENT FOR FOLOW-UP CARE. IF YOU HAVE A PRIMARY DOCTOR --you should call your primary doctor and schedule an appointment IF YOU DO NOT HAVE A PRIMARY DOCTOR YOU CAN CALL OUR PHYSICIAN REFERRAL HOTLINE AT IF YOU CAN NOT AFFORD TO SEE A PHYSICIAN YOU CAN CHOSE FROM THE FOLLOWING [facility] [address] [facility]. [facility] [address] [facility] [address] [facility] [facility] [address] [facility] [facility] [address] [facility]. [facility]. [address] [facility] [facility] YOU HAVE RECEIVED A MEDICAL SCREENING EXAM AND THE RESULTS INDICATE THAT YOU DO NOT HAVE A CONDITION THAT REQUIRES URGENT TREATMENT IN THE EMERGENCY DEPARTMENT. FURTHER EVALUATION AND TREATMENT OF YOUR CONDITION CAN WAIT UNTIL YOU ARE SEEN IN YOUR DOCTORS OFFICE WITHIN THE NEXT 1-2 DAYS. IT IS YOUR RESPONSIBILITY TO MAKE AN APPOINTMENT FOR FOLOW-UP CARE. IF YOU HAVE A PRIMARY DOCTOR --you should call your primary doctor and schedule and appointment IF YOU DO NOT HAVE A PRIMARY DOCTOR YOU CAN CALL OUR PHYSICIAN REFERRAL HOTLINE AT . IF YOU CAN NOT AFFORD TO SEE A PHYSICIAN YOU CAN CHOSE FROM THE FOLLOWING [facility] INSTITUTIONS: [facility] [place] [address] [place] [address] [facility] [address] [place] [address] [facility] [address] [place] [address] [facility] URGENT CARE/SPECIALTIES Additional Instructions: Llame al doctor MAANA y mikala carley RACH PARA DENTRO DE 2-3 EASTMAN.Dgale a la secretaria que nosotros le instruimos hacer esta rach.Avise o llame si barrera condicin se empeora antes de la rach. Regresa aqui si peor o no mejor. SAMMY GUPTA PA-C Dec 09, 2018 01:59
[2018-12-09 02:18] VITALS: BP 106/68; PULSE 72; RESP 16
== END 2018-12-09 02:18 | disposition home or self-care (01) ==
LOC: FTE 18:57
DX: N93.9 Abnormal uterine and vaginal bleeding, unspecified (principal)
CPT/HCPCS: 76856; 80053; 81001; 81025; 83690; 85025; J1885; J7030; 36415; 76830; 96374

== ENCOUNTER 2019-05-30 19:21 | Emergency (ER) | payer MEDICAID ==
[~2019-05-30] VITALS: Ht 157.5 cm; Wt 124.8 kg
[~2019-05-30 19:21] MED LIST changes: +GUAI120S25 PO; -GUAI120S26 PO; +NAPR-985 PO
[2019-05-30 19:37] VITALS: Ht 157.5 cm; Wt 124.8 kg
== END 2019-05-30 21:11 | disposition home or self-care (01) ==
LOC: FTE 19:21
DX: M25.562 Pain in left knee (principal); M72.2 Plantar fascial fibromatosis
CPT/HCPCS: 99282